=== PATIENT | male | born 1985 | race Caucasian/White ===

== ENCOUNTER 2024-03-29 11:44 | Emergency (ER) | payer OTHER ==
[~2024-03-29] VITALS: Ht 180.3 cm; Wt 70.8 kg
[2024-03-29 12:29] VITALS: TEMP 98.2
[2024-03-29] MEDS ORDERED: SULF1TAB48 PO (13:40)
[2024-03-29] MEDS ORDERED: CEPH-570 PO (13:40)
[2024-03-29] MEDS ORDERED: IBUP-1955 PO (13:40)
[2024-03-29 14:33] VITALS: BP 120/80; O2SAT 98
== END 2024-03-29 14:33 | disposition home or self-care (01) ==
LOC: ER 11:46
DX: M79.642 Pain in left hand (principal); Z89.022 Acquired absence of left finger(s); M25.561 Pain in right knee; M25.562 Pain in left knee; M79.645 Pain in left finger(s); F17.200 Nicotine dependence, unspecified, uncomplicated; Z60.2 Problems related to living alone